=== PATIENT | female | born 1990 | race Caucasian/White ===

== ENCOUNTER 2017-06-09 17:48 | Emergency (ER) | payer OTHER ==
[~2017-06-09] VITALS: Ht 152.4 cm; Wt 84.5 kg
[~2017-06-09 17:48] MED LIST: OXYC1SOL5 PO; PERI8.6T PO
[2017-06-09 17:50] VITALS: BP 132/78; PULSE 138; RESP 16; TEMP 99; O2SAT 97
[2017-06-09] MEDS ORDERED: ZITHTAB PO (18:06)
[2017-06-09] MEDS ORDERED: DIFL150T PO (18:06)
--- NOTE | 2017-06-09 18:06 | PD ---
HPI Chief Complaint: Cold / Flu Symptoms Time Seen by Provider: 17:56 Travel History International Travel<30 days: No Contact w/Intl Traveler<30days: No Traveled to known affect area: No History of Present Illness HPI This is a 27-year-old female presents to the ER complaining of cough and runny nose for the last week. Patient states the cough is nonproductive of any sputum , denies any fevers chills or night sweats he denies any shortness of breath or chest pain. She also states that she has been having ear pain mainly on the left, no discharge from the ear or blood. Reports occasional headaches but no body aches, no nausea vomiting or diarrhea. PFSH Past Medical History Anxiety: Yes Depression: Yes (PTSD) Diminished Hearing: No Immunizations Current: No ?: Not LMP: 05/18/17 : 4 Para: 3 Miscarriage: 1 : 0 Ovarian Cysts: Yes Dilation and Curettage (D&C): Yes Past Surgical History Section: Yes (X3 2006, 2010, 2012) Social History Alcohol Use: No Tobacco Use: No Substance Use: No Allergies-Medications (Allergen,Severity, Reaction): Coded Allergies: No Known Allergies (Verified Adverse Reaction, Unknown, 06/09/17) Reported Meds & Prescriptions Reported Meds & Active Scripts Active No Active Prescriptions or Reported Medications Review of Systems Except as stated in HPI: all other systems reviewed are Neg General / Constitutional: No: Fever Eyes: No: Diploplia HENT: No: Headaches Physical Exam Narrative GENERAL: Alert 3 no acute distress SKIN: Focused skin assessment warm/dry. HEAD: Atraumatic. Normocephalic. EYES: Pupils equal and round. No scleral icterus. No injection or drainage. ENT: No nasal bleeding or discharge. Mucous membranes pink and moist. NECK: Trachea midline. No JVD. CARDIOVASCULAR: Regular rate and rhythm. No murmur appreciated. RESPIRATORY: No accessory muscle use. Clear to auscultation. Breath sounds equal bilaterally. GASTROINTESTINAL: Abdomen soft, non-tender, nondistended. Hepatic and splenic margins not palpable. MUSCULOSKELETAL: No obvious deformities. No clubbing. No cyanosis. No edema. NEUROLOGICAL: Awake and alert. No obvious cranial nerve deficits. Motor grossly within normal limits. Normal speech. PSYCHIATRIC: Appropriate mood and affect; insight and judgment normal. Data Data Last Documented VS Vital Signs Date Time Temp Pulse Resp B/P (MAP) Pulse Ox O2 Delivery O2 Flow Rate FiO2 06/09/17 17:50 99.0 138 16 132/78 (96) 97 MDM Medical Decision Making Medical Screen Exam Complete: Yes Emergency Medical Condition: Yes Differential Diagnosis Bronchitis, pharyngitis, URI. Narrative Course This is a 27-year-old female presents to the ER complaining of URI like symptoms. Physical exam is remarkable for mild rhonchi bilaterally, I believe she will benefit from a course of antibiotic and she can follow-up with her primary care physician. Diagnosis Primary Impression: Bronchitis Scripts Fluconazole (Diflucan) 150 Mg Tab 150 MG PO ONCE for Infection, #1 TAB 0 Refills Prov: Inder Rodgers MD 06/09/17 Azithromycin (Zithromax Z-Manuel) 250 Mg Dspk 250 MG PO DIRECTED for Infection, #1 DSPK 0 Refills 500 MG (2 tabs) day 1, then 1 tab days 2-5. Prov: Inder Rodgers MD 06/09/17 Disposition: 01 DISCHARGE HOME Condition: Stable Inder Rodgers MD Jun 09, 2017 18:06
[2017-06-09] MEDS ORDERED: IBUPROFEN 600 MG TAB PO ONE (18:15)
== END 2017-06-09 18:26 | disposition home or self-care (01) ==
LOC: PHED 17:48
DX: J40 Bronchitis, not specified as acute or chronic (principal)
CPT/HCPCS: 99283

== ENCOUNTER 2017-06-27 16:11 | Emergency (ER) | payer OTHER ==
[~2017-06-27] VITALS: Ht 152.4 cm; Wt 86.3 kg
[~2017-06-27 16:11] MED LIST changes: +DIFL150T PO; -OXYC1SOL5 PO; -PERI8.6T PO; +ZITHTAB PO
[2017-06-27 16:22] VITALS: BP 122/76; PULSE 110; RESP 16; TEMP 99.3; O2SAT 99
[2017-06-27] MEDS ORDERED: KETOROLAC TROMETHAMINE 30 MG/ML (IVP) VIAL IV PUSH ONE (16:45)
[2017-06-27 16:49] LABS: AUTOMATED NEUTROPHIL # 7.7 TH/MM3 (1.8-7.7); BASOPHIL # 0.2 TH/MM3 (0-0.2); BASOPHIL % 1.7 % (0.0-2.0); EOSINOPHIL # 0.3 TH/MM3 (0-0.4); EOSINOPHIL % 2.5 % (0.0-4.0); HEMOGLOBIN 12.5 GM/DL (11.6-15.3); LYMPH % 24.1 % (9.0-44.0); LYMPHOCYTE # 2.8 TH/MM3 (1.0-4.8); MEAN CORPUSCULAR HGB CONC 32.9 % (32.0-36.0); MEAN PLATELET VOLUME 7.2 FL (7.0-11.0); MONO % 5.5 % (0.0-8.0); MONOCYTE # 0.6 TH/MM3 (0-0.9); NEUT % 66.2 % (16.0-70.0); PLATELET COUNT 399 TH/MM3 (150-450); RED BLOOD COUNT 5.43 MIL/MM3 (4.00-5.30); RED CELL DISTRIBUTION WIDTH 15.1 % (11.6-17.2); WHITE BLOOD COUNT 11.6 TH/MM3 (4.0-11.0)
--- NOTE | 2017-06-27 16:52 | PD ---
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 She is also having lower abdominal cramping. She denies taking any medication yet today. She states that she's had a tubal ligation. She states that her cycle is one it should be but she is concerned with them out of bleeding. Quality is bright red. Severity is when she urinates a lot comes out. Duration is just started today. She denies specific modifying factors other than the bleeding is worse if she stands up. She denies other concurrent complaints. PFSH Past Medical History Anxiety: Yes Depression: Yes (PTSD) Diminished Hearing: No Immunizations Current: No Tetanus Vaccination: Unknown Influenza Vaccination: No ?: Not LMP: 06/26/17 : 4 Para: 3 Miscarriage: 1 : 0 Ovarian Cysts: Yes Dilation and Curettage (D&C): Yes Tubal Ligation: Yes Past Surgical History Section: Yes (X3 2006, 2010, 2012) Cholecystectomy: Yes Social History Alcohol Use: No Tobacco Use: Yes (1/2 PK) Substance Use: No Allergies-Medications (Allergen,Severity, Reaction): Coded Allergies: No Known Allergies (Verified Adverse Reaction, Unknown, 06/27/17) Reported Meds & Prescriptions Reported Meds & Active Scripts Active Review of Systems Except as stated in HPI: all other systems reviewed are Neg Physical Exam Narrative GENERAL: 27-year-old female in no apparent distress SKIN: Focused skin assessment warm/dry. HEAD: Atraumatic. Normocephalic. EYES: Pupils equal and round. No scleral icterus. No injection or drainage. ENT: No nasal bleeding or discharge. Mucous membranes pink and moist. NECK: Trachea midline. CARDIOVASCULAR: Regular rate and rhythm. RESPIRATORY: No accessory muscle use. No increased effort GASTROINTESTINAL: Abdomen soft, non-tender, nondistended. MUSCULOSKELETAL: No obvious deformities. No clubbing. No cyanosis. No edema. NEUROLOGICAL: Awake and alert. No obvious cranial nerve deficits. Motor grossly within normal limits. Normal speech. PSYCHIATRIC: Appropriate mood and affect; insight and judgment normal. Data Data Last Documented VS Vital Signs Date Time Temp Pulse Resp B/P (MAP) Pulse Ox O2 Delivery O2 Flow Rate FiO2 06/27/17 16:22 99.3 110 16 122/76 (91) 99 Orders Orders Beta Hcg (Quant/Titer) (06/27/17 16:27) Complete Blood Count With Diff (06/27/17 16:27) Iv Access Insert/Monitor (06/27/17 16:27) Ed Urine Pregnancytest Poc (06/27/17 16:27) Ketorolac Inj (Toradol Inj) (06/27/17 16:45) Ed Discharge Order (06/27/17 17:36) Labs Laboratory Tests Test 06/27/17 16:35 White Blood Count 11.6 TH/MM3 Red Blood Count 5.43 MIL/MM3 Hemoglobin 12.5 GM/DL Hematocrit 38.0 % Mean Corpuscular Volume 70.0 FL Mean Corpuscular Hemoglobin 23.0 PG Mean Corpuscular Hemoglobin Concent 32.9 % Red Cell Distribution Width 15.1 % Platelet Count 399 TH/MM3 Mean Platelet Volume 7.2 FL Neutrophils (%) (Auto) 66.2 % Lymphocytes (%) (Auto) 24.1 % Monocytes (%) (Auto) 5.5 % Eosinophils (%) (Auto) 2.5 % Basophils (%) (Auto) 1.7 % Neutrophils # (Auto) 7.7 TH/MM3 Lymphocytes # (Auto) 2.8 TH/MM3 Monocytes # (Auto) 0.6 TH/MM3 Eosinophils # (Auto) 0.3 TH/MM3 Basophils # (Auto) 0.2 TH/MM3 CBC Comment AUTO DIFF Differential Comment AUTO DIFF CONFIRMED Human Chorionic Gonadotropin, Quant LESS THAN 1 MIU/ML MDM Medical Decision Making Medical Screen Exam Complete: Yes Emergency Medical Condition: Yes Medical Record Reviewed: Yes (past history confirmed) Interpretation(s) CBC & BMP Diagram 06/27/17 16:35 Differential Diagnosis Anemia, ectopic, menses Narrative Course Will check test, lab work and reevaluate while dosing with Toradol beta is negative, cbc is stable, Patient denies any new complaints and states that they are feeling better. Patient happy with care, all questions answered. Patient knows that follow up is incumbent on them and to return to the emergency room immediately if new or worsening symptoms develop. Patient given strict return precautions, vitals reviewed and are normal, agrees to further workup as an outpatient. staff states patient left without d/c paperwork while nurse was with another patient Diagnosis Primary Impression: Vaginal bleeding Patient Instructions: General Instructions Additional Instructions: alternate tylenol and motrin, follow with gynecology this week, return with any emergent need Med/Other Pt SpecificInfo: No Change to Meds Disposition: 01 DISCHARGE HOME Condition: Stable Sarah Viramontes MD Jun 27, 2017 16:52
== END 2017-06-27 18:23 | disposition home or self-care (01) ==
LOC: PHED 16:11
DX: N93.9 Abnormal uterine and vaginal bleeding, unspecified (principal); F43.10 Post-traumatic stress disorder, unspecified; F32.9 Major depressive disorder, single episode, unspecified; Z72.0 Tobacco use
CPT/HCPCS: 84702; 84703; 85025; 96374; 99284; J1885

== ENCOUNTER 2017-09-26 16:48 | Emergency (ER) | payer OTHER ==
[~2017-09-26] VITALS: Ht 152.4 cm; Wt 89.0 kg
[2017-09-26 16:49] VITALS: BP 126/85; PULSE 95; RESP 16; TEMP 98.9; O2SAT 99
[2017-09-28] MEDS ORDERED: PENI500T PO (03:04)
[2017-09-28] MEDS ORDERED: NORC5TAB PO (03:04)
[2017-09-28] MEDS ORDERED: PERI0.126 SWISH-SPIT (03:04)
[2017-09-28] MEDS ORDERED: IBUP-232 PO (03:04)
== END 2017-09-26 17:45 | disposition left against medical advice (07) ==
LOC: PHED 16:48
DX: K08.89 Other specified disorders of teeth and supporting structures (principal)
CPT/HCPCS: 99281